=== PATIENT | female | born 1995 | race Caucasian/White ===

== ENCOUNTER 2023-06-18 15:13 | Inpatient (IN) ==
[2023-06-18] MEDS ORDERED: Lidocaine 1% VIAL 10 MG/ML 30 ML VIAL INJ PRN (15:27)
[2023-06-18] MEDS: Lactated Ringers 1000 ml BAG 1,000 ML IV ONE ×2 (15:40→16:20)
[2023-06-18 15:45] LABS: ABS Basophils 0.1 10^3/uL (0.0-0.1); ABS Lymphocytes 2.4 10^3/uL (1.0-4.8); ABS Monocytes 0.7 10^3/uL (0.0-0.9); ABS Neutrophils 10.1 10^3/uL (1.5-7.6); ABS Nucleated RBC 0.01 10^3/ul; Eosinophil % 0.2 %; Hematocrit 33.9 % (35-45); Hemoglobin 11.6 g/dL (11.5-14.3); Lymphocyte % 17.9 %; Mean Corpuscular Hemoglobin 29.5 pg (27-33); Mean Corpuscular Hgb Conc 34.2 g/dL (31-36); Mean Corpuscular Volume 86.4 fL (80-97); Mean Platelet Volume 8.4 fL (7.5-11.2); Nucleated Red Blood Cells % 0.1 %/100WBC (0.0-0.8); Platelet Count 216 10^3/uL (150-450); Red Blood Count 3.92 10^6/uL (3.63-4.92); Red Cell Distribution Width 13.9 % (12-17); White Blood Count 13.4 10^3/uL (3.8-11.8)
[2023-06-18] MEDS ORDERED: Lidocaine 1.5% EPI 1:200,000 30 ML SDV ONE (15:45)
[2023-06-18] MEDS ORDERED: OBEPIDURAL (200 ML) 200 ML EPIDURAL ONE (15:45)
[2023-06-18] MEDS ORDERED: fentaNYL 100 mcg/2 ml 50 MCG/ML VIAL ONE (15:56)
[2023-06-18 16:06] LABS: Albumin 3.6 g/dL (3.2-5.2); Calcium 9.5 mg/dL (8.6-10.3); Potassium 3.2 mmol/L (3.5-5.0); Total Bilirubin 0.4 mg/dL (0.2-1.0)
[2023-06-18 16:12] LABS: Albumin/Globulin Ratio 1.2 (1-3); Creatinine, Serum 0.6 mg/dL (0.51-0.95); Globulin 2.9 g/dL (2-4); Total Protein 6.5 g/dL (6.4-8.9); eGFR CKD-EPI 126.1 (>60)
[2023-06-18] MEDS ORDERED: Phenylephrine 40 mcg/mL 10mL (400mcg) SYRINGE IV PUSH PRN ×2 (16:42)
[2023-06-18] MEDS ORDERED: Sodium Citrate/Citric Acid LIQ 15 ML UDC PO PRN (16:42)
[2023-06-18] MEDS ORDERED: Lactated Ringers 1000 ml BAG 1,000 ML IV ONE (16:42)
[2023-06-18 17:00] LABS: Urine Appearance Clear; Urine Bilirubin Negative (Negative); Urine Blood 2+ (Negative); Urine Color Yellow; Urine Glucose Negative (Negative); Urine Ketones Trace (Negative); Urine Nitrite Negative (Negative); Urine Protein Negative (Negative); Urine Specific Gravity 1.012 (1.002-1.030); Urine Urobilinogen Negative (Negative)
[2023-06-18] MEDS ORDERED: OBEPIDURAL (200 ML) 200 ML EPIDURAL SCH (17:00)
[2023-06-18] MEDS ORDERED: Lactated Ringers 1000 ml BAG 1,000 ML IV SCH (17:00)
[2023-06-18 17:09] LABS: Urine Bacteria Absent (Absent); Urine Red Blood Cell 3+(>10/hpf) (Absent); Urine Squamous Epithelial Cell Present (Absent); Urine White Blood Cell Trace(0-5/hpf) (Absent)
[2023-06-18 17:38] LABS: Urine Benzodiazepine Screen None Detected (None Detect); Urine Cannabinoids Screen None Detected (None Detect); Urine Opiates Screen None Detected (None Detect)
[2023-06-18 20:05] LABS: Uric Acid 4.2 mg/dL (2.3-6.6)
[2023-06-18] MEDS ORDERED: Bupivacaine 0.25% w/EPI 10 ML SDV ONE (22:02)
[2023-06-18] MEDS ORDERED: Lidocaine 2% PF 5 ML VIAL ONE (22:02)
[2023-06-18] MEDS ORDERED: Phenylephrine IV 10 MG/ML 1 ml VIAL ONE (22:03)
[2023-06-18] MEDS ORDERED: Oxytocin in LR 20,000 MILLI.UNIT/1,000 ML BAG IV SCH (22:15)
[2023-06-19] MEDS ORDERED: Lidocaine 2% w/ EPI 1:200,000 MPF 20 ML SDV VIAL ONE (00:48)
[2023-06-19] MEDS ORDERED: ceFOXitin 2 GM IVPREMIX 2 GM/50 ML BAG ONE (01:14)
[2023-06-19] MEDS ORDERED: Oxytocin 10 UNITS/ML 1 ML VIAL ONE (01:26)
[2023-06-19] MEDS ORDERED: Bupivacaine 0.25% w/EPI 10 ML SDV ONE (01:28)
[2023-06-19] MEDS ORDERED: Morphine PF AMP (0.5MG/ML) 5 MG/10 ML AMP ONE (01:31)
[2023-06-19] MEDS ORDERED: KETAMINE HCL 10 MG/ML 20 ml VIAL (200 MG) ONE (01:32)
[2023-06-19] MEDS ORDERED: Acetaminophen IV 1 GM/100ML 1,000 MG/100 ML BAG IV ONE (01:49)
[2023-06-19] MEDS ORDERED: Metoclopramide 5 MG/ML VIAL (10 mg) IV PRN (01:55)
[2023-06-19] MEDS ORDERED: Acetaminophen IV 1 GM/100ML 1,000 MG/100 ML BAG IV PRN (01:55)
[2023-06-19] MEDS ORDERED: Ondansetron 4 mg VIAL 2 MG/ML 2 ml VIAL IV PRN (01:55)
[2023-06-19] MEDS ORDERED: Naloxone 0.4 mg VIAL 0.4 mg/ml 1 ml VIAL IV PUSH PRN (01:55)
[2023-06-19] MEDS ORDERED: Ondansetron 4 mg VIAL 2 MG/ML 2 ml VIAL ONE (02:16)
[2023-06-19] MEDS ORDERED: Glycerin ADULT 2.4 gm SUPP PR PRN (11:40)
[2023-06-19] MEDS ORDERED: Dibucaine 1% OINT 28.35 GM TUBE PR PRN (11:40)
[2023-06-19] MEDS ORDERED: Witch Hazel PAD JAR TOPICAL PRN (11:40)
[2023-06-19] MEDS ORDERED: Lactated Ringers 1000 ml BAG 1,000 ML IV SCH (12:00)
[2023-06-20 07:36] LABS: ABS Basophils 0.1 10^3/uL (0.0-0.1); ABS Lymphocytes 1.8 10^3/uL (1.0-4.8); ABS Monocytes 1.1 10^3/uL (0.0-0.9); Eosinophil % 0.1 %; Hematocrit 24.4 % (35-45); Hemoglobin 8.2 g/dL (11.5-14.3); Lymphocyte % 9.1 %; Mean Corpuscular Hemoglobin 29.6 pg (27-33); Mean Corpuscular Hgb Conc 33.6 g/dL (31-36); Mean Corpuscular Volume 88.2 fL (80-97); Mean Platelet Volume 7.8 fL (7.5-11.2); Platelet Count 178 10^3/uL (150-450); Red Blood Count 2.76 10^6/uL (3.63-4.92)
[2023-06-20] MEDS ORDERED: Iron Sucrose 200 MG in NS 0.9% 100 ml BAG 100 ML IVPB ONE (11:30)
[2023-06-21] MEDS ORDERED: Tetan/Diph/Pertus SYR(Tdap) 0.5 ML SYR(BOOSTRIX) use SYR contains LATEX IM ONE (09:00)
[2023-06-22] MEDS ORDERED: Tetan/Diph/Pertus SYR(Tdap) 0.5 ML SYR(BOOSTRIX) use SYR contains LATEX IM ONE (05:00)
[2023-06-22 07:46] VITALS: BP 118/67
== END 2023-06-22 12:15 | disposition home or self-care (01) | DRG 540 ==
LOC: MCHOBOUT 15:13 → MCHOB 15:52
PROVIDERS: ADMIT Midwife; ATTEND Midwife